=== PATIENT | female | born 1960 | race Caucasian/White ===

== ENCOUNTER 2016-08-16 17:53 | Emergency (ER) | payer MEDICAID ==
[2016-08-16] MEDS ORDERED: FAMOTIDINE 20 MG TAB PO ONE (18:10)
[2016-08-16] MEDS ORDERED: predniSONE 20 MG TAB PO ONE (18:10)
--- NOTE | 2016-08-16 18:10 | EDPHY ---
H & P Time Seen by Provider: 08/16/16 17:58 HPI/ROS: CHIEF COMPLAINT: Skin rash HISTORY OF PRESENT ILLNESS: Patient had similar rash 2 weeks ago. She knows of no new ingestions or contacts except that she changed pharmacy is a week ago and her medications are now from [facility]. Patient presents with 1 day of scattered red rash that is itchy and is on her legs and torso and arms and going up her neck. She does not have swelling in her tongue or throat and no wheezing. REVIEW OF SYSTEMS: No fever or chills, no known bug bites, no abdominal pain or vomiting. PAST MEDICAL HISTORY: Includes hypertension and anxiety Social history: Tobacco smoker General Appearance: Alert and conversant, cooperative. Patient has diffuse urticaria including her neck and her torso in both lower extremities and arms. Normal uvula. Normal speech and no stridor or drooling and no wheezing. No abdominal tenderness. No lymphangitis, not febrile, does not look septic or toxic. Emergency Department course/MDM: Patient has diffuse urticaria with no known trigger. Plan to treat with antihistamines and steroids, discussed and consented. Does not have signs or symptoms of anaphylaxis. Emphasized the patient we do not have trigger or source identified. Referred back to [facility] for investigation of source. Smoking Status: Current every day smoker Constitutional: Initial Vital Signs Temperature (C) 36.7 C 08/16/16 18:02 Heart Rate 88 08/16/16 18:02 Respiratory Rate 16 08/16/16 18:02 Blood Pressure 169/81 H 08/16/16 18:02 O2 Sat (%) 98 08/16/16 18:02 O2 Delivery Mode Room Air Allergies/Adverse Reactions: codeine [Codeine] Allergy (Verified 11/06/09 19:24) Home Medications: Medication Instructions Recorded Lisinopril 10/01/14 Metoprolol Succinate 10/01/14 Famotidine [Pepcid] 20 mg PO BID #6 tab 08/16/16 HCTZ (*) 08/16/16 predniSONE [prednisone 20mg (RX)] 40 mg PO DAILY PRN 5 Days 08/16/16 MDM/Departure - MDM Medications Given: Discontinued Medications Famotidine (Pepcid) 40 mg PO EDNOW ONE Stop: 08/16/16 18:11 Last Admin: 04/30/17 18:20 Dose: 40 mg Prednisone (Prednisone) 60 mg PO EDNOW ONE Stop: 08/16/16 18:11 Last Admin: 08/16/16 18:24 Dose: 60 mg - Depart Disposition: Home, Routine, Self-Care Clinical Impression: Urticaria Condition: Good Instructions: Urticaria (ED) Prescriptions: Famotidine [Pepcid] 20 mg PO BID #6 tab predniSONE [prednisone 20mg (RX)] 40 mg PO DAILY PRN 5 Days PRN Reason: rash Referrals: [facility],. [Clinic] - As per Instructions
[2016-08-16 18:26] VITALS: BP 137/93; PULSE 84; RESP 20; TEMP 97.7; O2SAT 95
== END 2016-08-16 18:26 | disposition home or self-care (01) ==
DX: L50.9 Urticaria, unspecified (principal); I10 Essential (primary) hypertension; F17.200 Nicotine dependence, unspecified, uncomplicated

== ENCOUNTER → 2018-01-11 | Outpatient (CLI) | payer MEDICAID ==
[~2018-01-11] MED LIST: GADOBUTROL 10 ML VIAL IVP ONE
== END ==
LOC: FIMAGING 14:13
PROVIDERS: ATTEND Surgery
DX: D18.03 Hemangioma of intra-abdominal structures (principal); N13.2 Hydronephrosis with renal and ureteral calculous obstruction
CPT/HCPCS: A9585